=== PATIENT | female | born 1975 | race African-American/Black ===

== ENCOUNTER 2017-10-07 09:30 | Emergency (ER) | payer OTHER ==
--- NOTE | 2017-10-07 10:07 | PDOC ---
History of Present Illness - General Chief Complaint: Pain Stated Complaint: ABDOMINAL PAIN Time Seen by Provider: 10/07/17 09:43 - History of Present Illness Initial Comments: 10/07/17 10:10 Chief complaint: Abdominal pain History of present illness: Patient complains of intermittent lower abdominal pain, suprapubic radiating to both lower quadrants, for several weeks. No nausea vomiting or diarrhea. No hematemesis melena or bloody stool. No urinary tract symptoms such as dysuria frequency urgency hesitancy or hematuria. No vaginal bleeding or discharge. She consulted her ESTHETICIAN/OWNER physician last week, who performed a bimanual exam and an ultrasound. She was tender on examination, but the ultrasound was negative except for fibroids. Further test results are pending and she is scheduled for a return visit to her ESTHETICIAN/OWNER next week. She was also referred to a bookmobile clerk, whom she saw last week. He performed an exam but did not make a diagnosis. He prescribed MiraLAX and a CAT scan. She is scheduled for the CAT scan but states that the bookmobile clerk told her that she could probably have it sooner if she came to the emergency room, and that's why she is here today. Review of systems: As noted above. In addition, no chest pain, shortness of breath, URI symptoms, sore throat, cough. Remainder systems reviewed and found to be negative Past medical history: High blood pressure, asthma, reportedly controlled on medications. Menses have become light and irregular during the last few months, but she had a period one month ago. 0. Medications as noted. 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 Fully active and without disability. Family history: Significant for high blood pressure. No early coronary artery disease, metabolic disease including diabetes, GI disease, or cancer Physical exam: Alert and oriented mildly obese but no acute distress, cooperative Afebrile, vital signs normal except for moderately elevated blood pressure No pallor or icterus. PERRLA 4 mm, fundi benign with sharp disc margins and good central venous pulsations, ENT clear Neck supple without bruit mass or nodes Lungs clear with full breath sounds throughout bilaterally CV shows increased S2, no murmurs rubs or gallops, pulses full and symmetric, no JVD or edema, no bruits Abdomen nondistended. Bowel sounds normal. Soft without mass or organomegaly. There is mild tenderness to deep palpation in the suprapubic region, as well as both lower quadrants, but without guarding or rebound. No CVAT CARDIAC CATH TECHNOLOGIST exam was performed this week by the patient's ESTHETICIAN/OWNER physician. She is scheduled for a revisit as noted above. Repeat exam was not performed today Neurological intact Skin clear, no rash, adequate turgor and wet mucous membranes Extremities no CCE Impression: Chronic lower abdominal pain, no acute exacerbation today, and in view of the patient's described tenderness upon CARDIAC CATH TECHNOLOGIST exam this week, most likely this is gynecological. However, acute/chronic diverticulitis, indolent appendicitis or UTI a possible Plan: Urinalysis, CT, and further medical management depending on results. Past History - Past Medical History Allergies/Adverse Reactions: Allergies Allergy/AdvReac Type Severity Reaction Status Date / Time No Known Drug Allergies Allergy Verified 10/07/17 09:32 Home Medications: Ambulatory Orders Albuterol Sulfate [Proair Hfa -] 1 - 2 inh PO PRN 02/25/12 Budesonide/Formeterol Fumarate [SYMBICORT 160/4.5mcg -] 1 inh IN DAILY 10/07/17 Diclofenac Sodium 75 mg PO BID PRN #20 tablet. 10/07/17 Lisinopril 5 mg PO DAILY 10/07/17 Asthma: Yes Cardiac Disorders: No COPD: No Diabetes: No HTN: Yes - Suicide/Smoking/Psychosocial Hx Smoking Status: No Smoking History: Never smoked Have you smoked in the past 12 months: No Number of Cigarettes Smoked Daily: 0 Information on smoking cessation initiated: No Hx Alcohol Use: No Drug/Substance Use Hx: No Substance Use Type: None *Physical Exam - Vital Signs Last Vital Signs Temp Pulse Resp BP Pulse Ox 98.3 F 56 L 16 151/103 100 10/07/17 09:32 10/07/17 09:32 10/07/17 09:32 10/07/17 09:32 10/07/17 09:32 Medical Decision Making - Medical Decision Making 10/07/17 14:46 CT scan is negative. No sign of intra-abdominal disease Likely CARDIAC CATH TECHNOLOGIST/pelvic pain. Had normal ultrasound within the past week, as well as examination and further laboratory work by ESTHETICIAN/OWNER physician. She will follow-up as directed next week. In the meantime, analgesics, rest, follow-up if symptoms worsen. Fully ambulatory and in no pain or other distress upon discharge to follow-up as directed *DC/Admit/Observation/Transfer Diagnosis at time of Disposition: Pelvic pain, Elevated blood pressure reading - Discharge Dispostion Disposition: HOME Condition at time of disposition: Stable Decision to Admit order: No - Prescriptions Prescriptions: Diclofenac Sodium 75 mg PO BID PRN #20 tablet.dr DE [place] Reason: Pain - Referrals - Patient Instructions Printed Discharge Instructions: High Blood Pressure, DI for Pelvic Pain Additional Instructions: Pain is most likely due to a gynecological problem. You should follow up as scheduled with your ESTHETICIAN/OWNER physician for further evaluation and treatment. CAT scan did not show any abnormalities of the abdomen. Blood pressure is high. It is recommended you see your primary physician in 24 hours for another measurement and adjustment of your medications as needed. Return to ER if pain becomes more severe or other symptoms develop. Otherwise follow-up as scheduled with primary physician and ESTHETICIAN/OWNER. - Post Discharge Activity Forms/Work/School Notes: Back to Work
[2017-10-07 10:08] VITALS: TEMP 98.3; BMI 34.9
[2017-10-07 10:14] LABS: PH,URINE 5.5 (4.5-8); URINE APPEARANCE Clear; URINE BILIRUBIN Negative (NEGATIVE); URINE GLUCOSE (UA) Negative (NEGATIVE); URINE KETONE Negative (NEGATIVE); URINE LEUK ESTERASE Negative (NEGATIVE); URINE NITRITE Negative (NEGATIVE); URINE PROTEIN Negative (NEGATIVE); URINE UROBILINOGEN 0.2 (0.2-1.0)
[2017-10-07 10:18] LABS: URINE COLOR AMBER
[2017-10-07 10:20] LABS: HCG,QUALITATIVE URINE Negative
[2017-10-07 13:49] VITALS: BP 154/104; PULSE 65
== END 2017-10-07 14:00 | disposition home or self-care (01) ==
LOC: FER 09:30
DX: R10.2 Pelvic and perineal pain (principal); R03.0 Elevated blood-pressure reading, without diagnosis of hypertension; J45.909 Unspecified asthma, uncomplicated; I10 Essential (primary) hypertension
CPT/HCPCS: 74176-TC; 81003; 84703; 99282-25